=== PATIENT | female | born 1965 | race Caucasian/White ===

== ENCOUNTER → 2019-11-01 10:01 | Outpatient (CLI) | payer OTHER, SELFPAY ==
--- NOTE | ~2019-11-01 | MM_ITS ---
EXAMINATION: MM screening [facility] w gissell HISTORY: Screening TECHNIQUE: Craniocaudal and mediolateral oblique 3-D tomosynthesis images were obtained and synthetic 2-D images were generated. CAD analysis was submitted and interpreted. COMPARISON: Comparison to multiple prior studies sequentially, with oldest reviewed study dated 10/2014. BREAST PARENCHYMAL COMPOSITION: There are scattered areas of fibroglandular density. FINDINGS: There are focal asymmetries in the upper outer quadrant of the right breast. The left breas t is stable without evidence for malignancy. IMPRESSION: 1. New focal right breast asymmetries. 2. Additional mammographic views and possible breast ultrasound are recommended. BI-RADS Category 0: Incomplete: Needs additional imaging evaluation. Reviewed, dictated and finalized at location A. IMPRESSION: 1. New focal right breast asymmetries. 2. Additional mammographic views and possible breast ultrasound are recommended . BI-RADS Category 0: Incomplete: Needs additional imaging evaluation.
== END ==
PROVIDERS: PCP Family Medicine; Visit Provider Nurse Practitioner Obstetrics & Gynecology
DX: Z12.31 Encounter for screening mammogram for malignant neoplasm of breast (principal); R92.8 Other abnormal and inconclusive findings on diagnostic imaging of breast
CPT/HCPCS: 77063; 77067

== ENCOUNTER → 2019-11-29 09:20 | Outpatient (CLI) | payer OTHER, SELFPAY ==
--- NOTE | ~2019-11-29 | MMUS_ITS ---
EXAMINATION: MM diagnostic mammo unilat RT, US breast RT limited HISTORY: Right breast mass on screening mammogram TECHNIQUE: Additional 3-D tomosynthesis images of the right breast were performed and synthetic 2-D i mages were generated. CAD analysis was submitted and interpreted. High resolution limited right breas t ultrasound was performed. COMPARISON: 11/01/2019, 08/18/2018, 07/26/2017, 07/02/2016, 06/14/2016 FINDINGS: MAMMOGRAPHIC FINDINGS: Again noted is a stable mass with biopsy change at the 10:00 location. There is an 8 mm round, obscur ed, equal density mass in the middle third of the upper outer quadrant of the breast at the 11:00 loc ation 9 cm from the nipple. ULTRASOUND: There is an 8 mm cyst at the 11:00 location 8.5 cm from the nipple corresponding to the new mammograp hic finding in question. Also noted is the 1.2 cm mass which has been previously biopsied. IMPRESSION: 1. No mammographic or sonographic evidence of malignancy. 2. Recommend routine screening mammography in one year. BI-RADS Category 2: Benign finding(s). Reviewed, dictated and finalized at location A. IMPRESSION: 1. No mammographic or sonographic evidence of malignancy. 2. Recommend routine screening mammography in one year. BI-RADS Category 2: Benign finding(s).
== END ==
PROVIDERS: PCP Family Medicine; Visit Provider Nurse Practitioner Obstetrics & Gynecology
DX: R92.8 Other abnormal and inconclusive findings on diagnostic imaging of breast (principal)
CPT/HCPCS: 76642; 77065

== ENCOUNTER 2020-10-22 01:36 | Day surgery (SDC) | payer OTHER, SELFPAY ==
[2020-10-10 15:15] VITALS: BMI 41.6
--- NOTE | 2020-10-21 16:33 | PM.HPGS ---
History of Present Illness History of Present Illness Consent: Risks, benefits, and alternatives have been discussed and questions answered. Patient agrees to proceed with procedure. Chief complaint: neoplasm screening Narrative: Trupti Mccoy is a 55 year old female referred for screening colonoscopy Review of Systems Review of Systems: All systems reviewed & are unremarkable except as noted in HPI and below PMFSH Past Medical History Medical History HLD (hyperlipidemia) HTN (hypertension) Morbid obesity Type 2 diabetes mellitus without complications Surgical History Surgical History H/O arthroscopic knee surgery H/O wrist surgery History of section Social History Social History Smoking status: Never smoker Tobacco type: cigarettes Second hand tobacco smoke exposure: No Smoking end date: 02/29/92 Alcohol intake: never Drinks per week: 1 Substance use: never Substance use type: does not use Living arrangements: alone Gender identity (if verbalized by the patient): Female Spiritual care concerns: No Meds Home Medications and Allergies Home Medications Medication Instructions Recorded Confirmed Type ascorbic acid (vitamin C) 1,000 mg 1 gm PO BID 03/23/19 10/10/20 History tablet cinnamon bark 500 mg capsule 500 mg PO DAILY 03/23/19 10/10/20 History clobetasol 0.05 % topical ointment 1 applic TOPICAL BID PRN 03/23/19 10/10/20 History zinc 50 mg tablet 50 mg PO BID 03/23/19 10/10/20 History montelukast 10 mg tablet 10 mg PO DAILY #90 tablet 12/24/19 10/10/20 Rx potassium chloride 10 mEq 10 meq PO DAILY #150 tablet 12/24/19 10/10/20 Rx tablet,extended release chlorthalidone 25 mg tablet See Rx Instructions .ROUTE 05/26/20 10/10/20 Rx .COMPLEX #90 tablet dulaglutide 0.75 mg/0.5 mL See Rx Instructions .ROUTE 07/06/20 10/10/20 Rx subcutaneous pen injector .COMPLEX #2 ml pravastatin 20 mg tablet 20 mg PO DAILY #90 tablet 07/16/20 10/10/20 Rx ramipril 2.5 mg capsule 2.5 mg PO DAILY #90 cap 08/27/20 10/10/20 Rx metformin 2,000 mg PO QPM 10/10/20 10/10/20 History Allergies Allergy/AdvReac Type Severity Reaction Status Date / Time Penicillins Allergy Unknown Rash Verified 10/22/20 07:57 Sulfa (Sulfonamide Allergy Unknown Rash Verified 10/22/20 07:57 Antibiotics) ARTIFICIAL SWEETNERS Allergy Severe TONGUE Uncoded 10/10/20 15:11 TINGLY, HIVES ON FACE. Exam Resp: Auscultation: clear to auscultation bilaterally Cardio: Rate: regular rate Rhythm: regular rhythm GI: GI Palp: Yes Soft to palpation and No Tenderness to palpation present (GI) Assessment and Plan Assessment and plan (1) Colon cancer screening: Code(s): Z12.11 - Encounter for screening for malignant neoplasm of colon Status: Acute Assessment and Plan: Colonoscopy with possible biopsy or polypectomy or cautery or injection of substances.
[2020-10-22 07:58] VITALS: BP 140/88; PULSE 91; RESP 18; TEMP 36.1; O2SAT 99
[2020-10-22] MEDS: LACTATED RINGERS 1,000 ML 150 ML IV CONT (08:00)
[2020-10-22 08:08] LABS: Glucose Point of Care 151 mg/dl (65-105)
--- NOTE | 2020-10-22 08:12 | WPDANESEPPF ---
Anes - Initial Pre Proc Eval Procedure: Operation Date: 10/22/20 09:00 Proposed Procedures p Screening Colonoscopy - Ha Fung MD Date/Time: 10/22/20 08:12 Surgeon: Ha Fung MD Pre Op Diagnosis: neoplasm screening Patient Data Age: 55 Gender: F Height: 1.63 m Weight: 110.4 kg Last Vital Signs Temp 36.1 C L 10/22/20 07:58 Pulse 91 10/22/20 07:58 Resp 18 10/22/20 07:58 BP 140/88 10/22/20 07:58 Pulse Ox 99 10/22/20 07:58 Allergies Allergy/AdvReac Type Severity Reaction Status Date / Time Penicillins Allergy Unknown Rash Verified 10/22/20 07:57 Sulfa (Sulfonamide Allergy Unknown Rash Verified 10/22/20 07:57 Antibiotics) ARTIFICIAL SWEETNERS Allergy Severe TONGUE Uncoded 10/10/20 15:11 TINGLY, HIVES ON FACE. Home Medications Medication Instructions Recorded Confirmed Type ascorbic acid (vitamin C) 1,000 mg 1 gm PO BID 03/23/19 10/10/20 History tablet cinnamon bark 500 mg capsule 500 mg PO DAILY 03/23/19 10/10/20 History clobetasol 0.05 % topical ointment 1 applic TOPICAL BID PRN 03/23/19 10/10/20 History zinc 50 mg tablet 50 mg PO BID 03/23/19 10/10/20 History montelukast 10 mg tablet 10 mg PO DAILY #90 tablet 12/24/19 10/10/20 Rx potassium chloride 10 mEq 10 meq PO DAILY #150 tablet 12/24/19 10/10/20 Rx tablet,extended release chlorthalidone 25 mg tablet See Rx Instructions .ROUTE 05/26/20 10/10/20 Rx .COMPLEX #90 tablet dulaglutide 0.75 mg/0.5 mL See Rx Instructions .ROUTE 07/06/20 10/10/20 Rx subcutaneous pen injector .COMPLEX #2 ml pravastatin 20 mg tablet 20 mg PO DAILY #90 tablet 07/16/20 10/10/20 Rx ramipril 2.5 mg capsule 2.5 mg PO DAILY #90 cap 08/27/20 10/10/20 Rx metformin 2,000 mg PO QPM 10/10/20 10/10/20 History Laboratory Tests 10/22/20 08:05 POC Capillary Glucose 151 mg/dl H mg/dl (65-105) Patient hx anesthesia problems: none Family hx anesthesia problems: none PMFSH Past Medical History Medical History (Updated 10/22/20 @ 08:12 by Arvind Castellano MD) HLD (hyperlipidemia) HTN (hypertension) Morbid obesity Type 2 diabetes mellitus without complications Surgical History Surgical History (Updated 10/22/20 @ 08:12 by Arvind Castellano MD) H/O arthroscopic knee surgery H/O wrist surgery History of section Social History Social History Smoking status: Never smoker Tobacco type: cigarettes Second hand tobacco smoke exposure: No Smoking end date: 02/29/92 Alcohol intake: never Drinks per week: 1 Substance use: never Substance use type: does not use Living arrangements: alone Gender identity (if verbalized by the patient): Female Spiritual care concerns: No Anes - Eval Final PreProcedure Day of Procedure 10/22/20 08:12 Patient weight: morbidly obese Heart: regular rate and rhythm Lungs: clear to auscultation Airway: Mallampati scale class II Neurological: alert and oriented Last oral intake: >/= 8 hours ASA classification: III Emergent: no Anesthetic plan: proceed Anesthesia type and monitoring: general GIVS and standard monitoring Informed Consent: The patient's anesthetic plan and its attendant risks and benefits were discussed with the patient/family/POA. Questions were solicited and answers provided to the satisfaction of the patient/family/POA.
[2020-10-22 09:11] VITALS: BP 103/67; PULSE 88; RESP 21; O2SAT 98
[2020-10-22 09:21] VITALS: BP 107/71; PULSE 85; RESP 19; O2SAT 98
[2020-10-22 09:31] VITALS: BP 120/77; PULSE 77; RESP 20; O2SAT 99
== END 2020-10-22 09:48 | disposition home or self-care (01) ==
PROVIDERS: PCP Family Medicine; Visit Provider Internal Medicine Gastroenterology
PROC: 0DJD8ZZ Inspection of Lower Intestinal Tract, Via Natural or Artificial Opening Endoscopic (ICD-10-PCS; CPT 45378; principal; 2020-10-22 09:00)
DX: Z12.11 Encounter for screening for malignant neoplasm of colon (principal); K63.5 Polyp of colon; Z79.84 Long term (current) use of oral hypoglycemic drugs; I10 Essential (primary) hypertension; E78.5 Hyperlipidemia, unspecified; E11.9 Type 2 diabetes mellitus without complications; E66.01 Morbid (severe) obesity due to excess calories; Z68.41 Body mass index [BMI] 40.0-44.9, adult
CPT/HCPCS: 45385; 45380; 82948; 88305; J2704; J7120

== ENCOUNTER → 2022-05-03 10:16 | Outpatient (CLI) | payer OTHER, SELFPAY ==
--- NOTE | ~2022-05-03 | MM_ITS ---
EXAMINATION: MM screening [facility] BI w gissell HISTORY: Screening mammogram TECHNIQUE: Craniocaudal and mediolateral oblique 3-D tomosynthesis images were obtained and synthetic 2-D images were generated. CAD analysis was submitted and interpreted. COMPARISON: 11/29/2019, 11/01/2019, 08/18/2018 BREAST PARENCHYMAL COMPOSITION: There are scattered areas of fibroglandular density. FINDINGS: Stable right breast masses are considered benign given the lack of interval change. Some de monstrate prior biopsy. No suspicious mass, calcification, or architectural distortion are identified in either breast to suggest malignancy. There has been no suspicious interval change. IMPRESSION: 1. No mammographic evidence of malignancy. 2. Recommend routine screening mammography in one year. BI-RADS Category 2: Benign finding(s). Reviewed, dictated and finalized at location A. ER TROLL LINE
== END ==
PROVIDERS: PCP Family Medicine; Visit Provider Nurse Practitioner Obstetrics & Gynecology
DX: Z12.31 Encounter for screening mammogram for malignant neoplasm of breast (principal)
CPT/HCPCS: 77063; 77067

== ENCOUNTER 2023-10-05 14:41 | Outpatient (CLI) | payer OTHER, SELFPAY ==
--- NOTE | ~2023-10-05 | MM_ITS ---
EXAMINATION: MM screening [facility] BI w gissell HISTORY: Screening TECHNIQUE: Craniocaudal and mediolateral oblique 3-D tomosynthesis images were obtained and synthetic 2-D images were generated. CAD analysis was submitted and interpreted. COMPARISON: Comparison to multiple prior studies sequentially, with oldest reviewed study dated 07/26. BREAST PARENCHYMAL COMPOSITION: Not dense: There are scattered areas of fibroglandular density. FINDINGS: Stable benign-appearing mass in the upper outer quadrant of the right breast. There is no e vidence of suspicious mass, calcification, or architectural distortion to suggest malignancy in eithe r breast. There has been no suspicious interval change. IMPRESSION: 1. No mammographic evidence of malignancy. 2. Recommend routine screening mammography in one year. BI-RADS Category 2: Benign finding(s). Reviewed, dictated and finalized at location B.
== END 2023-10-05 14:42 | disposition home or self-care (01) ==
PROVIDERS: PCP Family Medicine; Visit Provider Nurse Practitioner Obstetrics & Gynecology
DX: Z12.31 Encounter for screening mammogram for malignant neoplasm of breast (principal)
CPT/HCPCS: 77063; 77067

== ENCOUNTER 2024-02-10 11:43 | Outpatient (CLI) | payer OTHER, SELFPAY ==
--- NOTE | ~2024-02-10 | XR_ITS ---
Left Shoulder Technique: AP and scapular Y views were obtained. Clinical History: Injury Findings: No fracture or dislocation is seen. Osseous alignment is anatomic. The glenohumeral joint i s intact. There is mild AC joint degenerative change. Soft tissues are unremarkable. Impression: Mild AC joint degenerative change. Reviewed, dictated and finalized at [facility]. CTOR WRITING Impression: Mild AC joint degenerative change.
--- NOTE | ~2024-02-10 | XR_ITS ---
Left Humerus Technique: AP and lateral views were obtained. Clinical History: Injury Findings: No fracture or dislocation is seen. Osseous alignment is anatomic. Mild AC joint degenerati ve change present. Remaining joint spaces are intact.. Soft tissues are unremarkable. Impression: No acute fracture or dislocation. Mild AC joint degenerative change. Reviewed, dictated and finalized at location . LENDING OFFICER Impression: No acute fracture or dislocation. Mild AC joint degenerative change.
== END 2024-02-10 11:44 | disposition home or self-care (01) ==
PROVIDERS: PCP Family Medicine; Visit Provider Physician Assistant Medical
DX: S49.92XA Unspecified injury of left shoulder and upper arm, initial encounter (principal); X58.XXXA Exposure to other specified factors, initial encounter; M19.012 Primary osteoarthritis, left shoulder
CPT/HCPCS: 73030; 73060